=== PATIENT | male | born 1945 | race Caucasian/White ===

== ENCOUNTER 2017-07-08 06:07 | Emergency (ER) | payer SELFPAY ==
[~2017-07-08] VITALS: Ht 175.3 cm; Wt 75.0 kg
[2017-07-08 06:13] VITALS: Ht 175.3 cm; Wt 75.0 kg
[2017-07-08] MEDS ORDERED: KETOROLAC 15 MG INJ IV STA (06:19)
[2017-07-08] MEDS ORDERED: SOD CHLORIDE 0.9% 500 ML IV STA (06:19)
--- NOTE | 2017-07-08 06:19 | ERD ---
ER Documentation Chief Complaint Date/Time DATE: 07/08/17 TIME: 06:13 Chief Complaint HPI Patient is a 72-year-old male who presents with sudden onset, constant left flank pain since last night. He states that the pain is cramping and comes in waves. He took Tylenol without relief. He denies dysuria or hematuria. He denies abdominal pain. He denies fever, vomiting. He states that he has been constipated over the last week but has had bowel movements. He denies history of similar symptoms in the past or diagnosis of kidney stones. ROS All systems reviewed and are negative except as per history of present illness. Medications Home Meds Active Scripts Ondansetron (Ondansetron Odt) 4 Mg Tab.rapdis, 4 MG PO Q6H Y for NAUSEA AND/OR VOMITING, #12 TAB Prov:NARINDER LEWIS MD 07/08/17 Hydrocodone/Acetaminophen (Acton 5-325 Tablet) 1 Each Tablet, 1 TAB PO Q6H Y for PAIN, #20 TAB Prov:NARINDER LEWIS MD 07/08/17 Tamsulosin Hcl* (Flomax*) 0.4 Mg Cap.er.24h, 0.4 MG PO QPM, #14 CAP Prov:NARINDER LEWIS MD 07/08/17 Cephalexin* (Keflex*) 500 Mg Capsule, 500 MG PO QID for 7 Days, CAP Prov:NARINDER LEWIS MD 07/08/17 Allergies Allergies: Coded Allergies: No Known Allergy (Unverified , 07/08/17) PMhx/Soc Past medical history: Questionable stroke 10 years ago Past surgical history: Denies Social history: Smokes cigarettes, denies tobacco alcohol or illicit drugs FmHx Family History: No coronary disease, No diabetes Physical Exam Vitals Vital Signs Date Time Temp Pulse Resp B/P Pulse Ox O2 Delivery O2 Flow Rate FiO2 07/08/17 10:10 98.1 72 14 128/82 98 Room Air 07/08/17 08:16 97.9 68 14 124/84 96 Room Air 07/08/17 06:13 97.9 65 17 119/81 96 Physical Exam Const: Alert, no acute distress Head: Atraumatic Eyes: Normal Conjunctiva, No pallor, no icterus ENT: Normal External Ears, Nose and Mouth.Mucous membranes moist Neck: Full range of motion. No meningismus. Resp: Clear to auscultation bilaterally, No wheezes, no rales Cardio: Regular rate and rhythm, no murmurs Abd: Soft, non tender, non distended. Skin: No petechiae or rashes Back: No midline,Mild left flank tenderness Ext: No cyanosis, or edema Neur: Awake and alert Psych: Normal Mood and Affect Result Diagram: 07/08/17 0630 07/08/17 0630 Results 24 hrs Laboratory Tests Test 07/08/17 06:30 07/08/17 07:55 White Blood Count 11.510^3/ul Red Blood Count 4.3210^6/ul Hemoglobin 14.1g/dl Hematocrit 41.6% Mean Corpuscular Volume 96.3fl Mean Corpuscular Hemoglobin 32.6pg Mean Corpuscular Hemoglobin Concent 33.9g/dl Red Cell Distribution Width 11.9% Platelet Count 53976^3/UL Mean Platelet Volume 10.1fl Neutrophils % 70.3% Lymphocytes % 17.5% Monocytes % 8.8% Eosinophils % 2.6% Basophils % 0.5% Nucleated Red Blood Cells % 0.0/100WBC Neutrophils # (Manual) 8.110^3/ul Lymphocytes # 2.010^3/ul Monocytes # 1.010^3/ul Eosinophils # 0.310^3/ul Basophils # 0.110^3/ul Nucleated Red Blood Cells # 0.010^3/ul Sodium Level 142mmol/L Potassium Level 4.6mmol/L Chloride Level 108mmol/L Carbon Dioxide Level 23mmol/L Anion Gap 16 Blood Urea Nitrogen 28mg/dl Creatinine 2.28mg/dl Glucose Level 124mg/dl Calcium Level 9.7mg/dl Total Bilirubin 0.7mg/dl Direct Bilirubin 0.00mg/dl Indirect Bilirubin 0.7mg/dl Aspartate Amino Transf (AST/SGOT) 25IU/L Alanine Aminotransferase (ALT/SGPT) 25IU/L Alkaline Phosphatase 92IU/L Total Protein 7.4g/dl Albumin 4.3g/dl Globulin 3.10g/dl Albumin/Globulin Ratio 1.38 Lipase 93U/L Urine Color YELLOW Urine Clarity CLEAR Urine pH 5.0 Urine Specific [place] 1.028 Urine Ketones TRACEmg/dL Urine Nitrite NEGATIVEmg/dL Urine Bilirubin NEGATIVEmg/dL Urine Urobilinogen 1+mg/dL Urine Leukocyte Esterase TRACELeu/ul Urine Microscopic RBC 7/HPF Urine Microscopic WBC 20/HPF Urine Calcium Oxalate Crystals FEW/HPF Urine Hemoglobin 2+mg/dL Urine Glucose NEGATIVEmg/dL Urine Total Protein 1+mg/dl Current Medications Medications (Trade) Dose Ordered Sig/Awilda Route PRN Reason Start Time Stop Time Status Last Admin Dose Admin Sodium Chloride (NS) 500 ml @ 500 mls/hr Q1H STAT IV 07/08/17 06:19 07/08/17 07:18 DC 07/08/17 06:36 Ketorolac Tromethamine (Toradol) 15 mg ONCE STAT IV 07/08/17 06:19 07/08/17 06:21 DC 07/08/17 06:36 Morphine Sulfate (morphine) 4 mg ONCE STAT IV 07/08/17 06:50 07/08/17 07:00 DC 07/08/17 07:04 Ondansetron HCl 4 mg 4 mg ONCE STAT IV 07/08/17 06:50 07/08/17 07:00 DC 07/08/17 07:04 Sodium Chloride 1,000 ml @ 1,000 mls/hr Q1H ONCE IV 07/08/17 08:30 07/08/17 09:29 DC 07/08/17 08:17 Ceftriaxone Sodium (Rocephin) 50 ml @ 100 mls/hr ONCE ONCE IVPB 07/08/17 09:00 07/08/17 09:29 DC 07/08/17 09:27 Procedures/MDM Patient is a 72-year-old male who presents with acute left flank pain. CT scan is consistent with a 7 mm left UVJ stone. The patient has normal white count and no fever. He has a few WBCs in his urine. He has a acute elevation of his creatinine to 2.3 compared with a baseline of 1.3. He has no evidence of obstruction of the right kidney. He was treated with analgesics, IV fluids, and antiemetics and clinically appeared much better. I discussed his care with patient's primary doctor, Dr. Hope, and he agreed with plan to have patient follow up on Sunday. He will arrange for expedited urology consultation and we will recheck kidney function. The patient will be prescribed Keflex, analgesics, antiemetics, and Flomax. He was advised on return precautions. Departure Diagnosis: Primary Impression: Ureterolithiasis Additional Impressions: Acute renal insufficiency UTI (urinary tract infection) Urinary tract infection type: site unspecified Hematuria presence: with hematuria Qualified Code: N39.0 - Urinary tract infection with hematuria, site unspecified Condition: NARINDER Avelar MD Jul 08, 2017 06:19
[2017-07-08] MEDS ORDERED: morphine 4 MG/ML VIAL IV STA (06:50)
[2017-07-08] MEDS ORDERED: ONDANSETRON 4 MG INJ IV STA (06:50)
[2017-07-08 06:54] LABS: BASOPHIL # 0.1 10^3/ul (0.0-0.1); BASOPHILS % 0.5 % (0.0-2.0); EOSINOPHILS # 0.3 10^3/ul (0.0-0.5); EOSINOPHILS % 2.6 % (0.0-7.0); HEMATOCRIT 41.6 % (42.0-52.0); HEMOGLOBIN 14.1 g/dl (14.0-18.0); LYMPHOCYTES % 17.5 % (15.0-51.0); MEAN CORPUSCULAR HEMOGLOBIN 32.6 pg (29.0-33.0); MEAN CORPUSCULAR HGB CONC 33.9 g/dl (32.0-37.0); MEAN CORPUSCULAR VOLUME 96.3 fl (82.0-101.0); MEAN PLATELET VOLUME 10.1 fl (7.4-10.4); MONOCYTES % 8.8 % (0.0-11.0); NEUTROPHILS % 70.3 % (39.0-77.0); PLATELET COUNT 219 10^3/UL (140-415); RED BLOOD COUNT 4.32 10^6/ul (4.70-6.10); RED CELL DISTRIBUTION WIDTH 11.9 % (11.5-14.5); WHITE BLOOD COUNT 11.5 10^3/ul (4.8-10.8)
[2017-07-08 07:15] LABS: ALBUMIN 4.3 g/dl (3.3-4.9); ALBUMIN/GLOBULIN RATIO 1.38; BILIRUBIN,INDIRECT 0.7 mg/dl (0-1.1); BILIRUBIN,TOTAL 0.7 mg/dl (0.2-1.3); CALCIUM 9.7 mg/dl (8.4-10.2); CREATININE 2.28 mg/dl (0.61-1.24); POTASSIUM 4.6 mmol/L (3.5-5.1); TOTAL PROTEIN 7.4 g/dl (6.1-8.1)
--- NOTE | 2017-07-08 07:55 | RADRPT ---
PROCEDURE: CT ABDOMEN/PELVIS WITHOUT CONTRAST CLINICAL INDICATION: 72-year-old male with left lower quadrant abdominal pain. TECHNIQUE: The study was performed utilizing a [employer] VCT 64-slice CT scanner. Direct axia l sections were obtained through the abdomen and pelvis without the use of intravenous contrast mate rial. Sagittal and coronal reformations were obtained. One or more of the following dose reduction t echniques were utilized: automated exposure control, adjustment of the mA and/or kV according to pat ient's size or use of iterative reconstruction technique. The images were reviewed on a PACS workst [employer]. CTD/vol = 13.3 mGy; Total Exam DLP = 887.7 mGy-cm. COMPARISON: None. FINDINGS: There is minimal bibasilar subsegmental atelectasis.. There is no evidence for significant pleural effusion. The liver has a normal size and contour without focal areas of abnormal density. No intra hepatic nor extrahepatic biliary ductal dilatation is seen. The gallbladder demonstrates no wall thi ckening nor pericholecystic fluid. No biliary stones are evident. The pancreas is without areas of a bnormal attenuation. The spleen is identified and has a normal size without abnormal density. There is a right adrenal nodule measuring approximately 14 x 14 x 15 mm with fluid density consistent wit h an adenoma. There is a left adrenal nodular density measuring approximately 14 x 10 x 10 mm with fluid density consistent with an adenoma. There is a right mid renal peripelvic cyst measuring appro ximately 1.5 x 1.4 x 1.5 cm. There is [id number] left-sided hydroureteronephrosis with an obs tructing calculus within the left ureterovesical junction region measuring approximately 7 x 7 x 6 mm. There is a small left mid renal cyst measuring approximately 8 x 10 x 10 mm. No hydroureterone phrosis nor nephroureterolithiasis is evident. The urinary bladder contains urine. There is a small umbilical hernia with an opening of 14 x 12 mm containing fat. There is mild retained stool within t he ascending and transverse colon without obstruction. The appendix is visualized and is without ab normal thickening or surrounding inflammatory reaction. The prostate is mildly enlarged and heteroge neous measuring approximately 5.0 x 4.4 x 5.6 cm with calcifications within it. Calcifications are s een within the left seminal vesicle region. The aortoiliac vessels are mildly calcified but without aneurysmal dilatation. Degenerative changes are present within the spine. IMPRESSION: 1. Ucat-am-cbijhlqi left-sided hydroureteronephrosis with an obstructing left ureterovesical juncti on 7 x 6 mm calculus. 2. Small bilateral adrenal nodules most consistent with adenomas. 3. Bilateral renal cysts. 4. Small umbilical hernia containing fat. 5. Mild retained stool within the proximal colon. 6. No CT evidence for appendicitis. 7. Mildly enlarged heterogeneous prostate. 8. Vascular calcifications. 9. Degenerative changes within the spine. .Henry Burrell MD, Date Time Electronically viewed and signed by .Henry Burrell MD, on 07/08/2017 07:55 .Emelia/
[2017-07-08 08:26] LABS: ADD UMIC YES; UR ASCORBIC ACID NEGATIVE (NEGATIVE); UR BILIRUBIN (Dip) NEGATIVE (NEGATIVE); UR BLOOD (Dip) 2+ mg/dL (NEGATIVE); UR CLARITY CLEAR (CLEAR); UR COLOR YELLOW (YELLOW); UR GLUCOSE (Dip) NEGATIVE (NEGATIVE); UR KETONES (Dip) TRACE mg/dL (NEGATIVE); UR LEUKOCYTE ESTERASE (Dip) TRACE Leu/ul (NEGATIVE); UR NITRITE (Dip) NEGATIVE (NEGATIVE); UR RBC 7 /HPF (0-5); UR SPECIFIC GRAVITY (Dip) 1.028 (1.003-1.030); UR TOTAL PROTEIN (Dip) 1+ mg/dl (NEGATIVE); UR UROBILINOGEN (Dip) 1+ mg/dL (NEGATIVE)
[2017-07-08] MEDS ORDERED: SOD CHLORIDE 0.9% 1,000 ML IV ONE (08:30)
[2017-07-08] MEDS ORDERED: CEFTRIAXONE 1 GM/50 ML (PMX) 50 ML IVPB ONE (09:00)
[2017-07-08] MEDS ORDERED: TAMS-14 PO (09:56)
[2017-07-08] MEDS ORDERED: CEPH-443 PO (09:56)
[2017-07-08] MEDS ORDERED: HYDR-906 PO (09:56)
[2017-07-08] MEDS ORDERED: ONDA4TAB14 PO (09:56)
[2017-07-08 10:10] VITALS: BP 128/82; PULSE 72; RESP 14; TEMP 98.1
== END 2017-07-08 10:13 | disposition home or self-care (01) ==
LOC: E/R 06:07
DX: N20.1 Calculus of ureter (principal); N28.9 Disorder of kidney and ureter, unspecified; N39.0 Urinary tract infection, site not specified; F17.210 Nicotine dependence, cigarettes, uncomplicated
CPT/HCPCS: 36415; 74176; 80053; 81001; 83690; 85025; 96361; 96365; 96375; 99285; J0696; J1885; J2270; J2405; J7030; J7040